=== PATIENT | female | born 1980 | race Hispanic/Latino ===

== ENCOUNTER 2019-02-22 22:09 | Inpatient (IN) ==
[2019-02-22] MEDS ORDERED: REGLAN PO PRN (22:34)
[2019-02-22] MEDS ORDERED: TYLENOL PO PRN (22:34)
[2019-02-22] MEDS ORDERED: KEFZOL 1 GM/D5W 1 GM/50 ML IVPB IV PRN (22:34)
[2019-02-22] MEDS ORDERED: PEPCID PO PRN ×2 (22:34)
[2019-02-22] MEDS ORDERED: STADOL IV PRN (22:34)
[2019-02-22] MEDS ORDERED: PEPCID IV PRN (22:34)
[2019-02-22] MEDS ORDERED: ZOFRAN IV PRN (22:34)
[2019-02-22] MEDS ORDERED: LR 1,000 ML IV SCH (22:45)
[2019-02-22] MEDS ORDERED: SODIUM CHLORIDE 0.9% INJ SCH (22:45)
[2019-02-22 22:48] LABS: URINE SOURCE VOIDED
[2019-02-22 22:51] LABS: BASO# 0.01 X1000 (0.0-0.2); BASO% 0.1 % (0.0-0.8); EOS# 0.22 X1000 (0.0-0.7); EOS% 2.2 % (0.0-10.0); HEMATOCRIT 31.4 % (37.0-47.0); HEMOGLOBIN 10.6 g/dL (12.0-16.0); IMM GRAN# 0.05 X1000 (0.0-0.04); IMM GRAN% 0.5 % (0.0-0.5); LYMPH# 2.63 X1000 (1.2-3.4); LYMPH% 26.8 % (20.5-51.1); MCH 31.3 PG (27-31); MCHC 33.8 g/dL (33-37); MCV 92.6 FL (81-99); MONO% 10.2 % (1.7-9.3); MPV 10.4 FL (7.4-10.4); NEUT# 5.91 X1000 (1.4-6.5); NEUT% 60.2 % (42.2-75.2); PLT 255 X1000 (130-400); RBC 3.39 XMIL (4.2-5.4); RDW 13.4 % (11.5-14.5); WBC 9.82 X1000 (4.8-10.8)
[2019-02-22 23:10] LABS: BILIRUBIN URINE NEGATIVE (NEGATIVE); BLOOD URINE NEGATIVE (NEGATIVE); CLARITY CLEAR (CLEAR); COLOR YELLOW; GLUCOSE URINE NEGATIVE (NEGATIVE); KETONE URINE NEGATIVE (NEGATIVE); LEUKOCYTES URINE TRACE (NEGATIVE); NITRITE URINE NEGATIVE (NEGATIVE); PH URINE 6.5; PROTEIN URINE NEGATIVE (NEGATIVE); UROBILINOGEN URINE NORMAL
[2019-02-22 23:13] LABS: UR AMPHETAMINES QUAL NONE DETECTED (NONE DETECT); UR BARBITUATES QUAL NONE DETECTED (NONE DETECT); UR BENZODIAZEPIN QUAL NONE DETECTED (NONE DETECT); UR CANNABINOIDS QUAL NONE DETECTED (NONE DETECT); UR COCAINE QUAL NONE DETECTED (NONE DETECT); UR METHADONE QUAL NONE DETECTED (NONE DETECT); UR METHAMPHETAMINE QUAL NONE DETECTED (NONE DETECT); UR OPIATES QUAL NONE DETECTED (NONE DETECT); UR OXYCODONE QUAL NONE DETECTED (NONE DETECT); UR PCP QUAL NONE DETECTED (NONE DETECT); UR PROPOXYPHENE QUAL NONE DETECTED (NONE DETECT); UR TCA QUAL NONE DETECTED (NONE DETECT)
[2019-02-22 23:30] LABS: POTASSIUM 3.9 mmol/L (3.5-5.1); SODIUM 137 mmol/L (136-145)
[2019-02-22 23:31] LABS: AGAP 12; ALBUMIN 3.7 g/dL (3.5-5.0); ALKALINE PHOSPHATASE 66 U/L (32-104); BUN 8 mg/dL (8-22); CALCIUM 8.9 mg/dL (8.8-10.2); CHLORIDE 105 mmol/L (98-107); COSMO 272; CREATININE 0.5 mg/dL (0.5-0.9); ESTIMATED GFR > 60; GLUCOSE 103 mg/dL (70-104); GOT 15 U/L (10-30); GPT 14 U/L (10-36); TCO2 21 mmol/L (25-35); TOTAL BILIRUBIN < 0.15 mg/dL (0.20-1.00); TOTAL PROTEIN 6.4 g/dL (6.3-8.3)
[2019-02-22] MEDS ORDERED: CYTOTEC VAG ONE (23:44)
[2019-02-22] MEDS ORDERED: SODIUM CHLORIDE 0.9% INJ ONE (23:44)
[2019-02-22] MEDS ORDERED: MORPHINE IV ONE (23:44)
[2019-02-22] MEDS ORDERED: PHENERGAN IV ONE (23:44)
[2019-02-23 00:04] LABS: URINE SOURCE CLEAN CATCH
[2019-02-23 00:05] LABS: CLARITY CLEAR (CLEAR); COLOR YELLOW; URINE BACTERIA 3+ /HFP; URINE EPITHELIAL CELLS <10 /HPF (<10); URINE RBC <10 /HPF (<10); URINE WBC <10 /HPF (<10)
[2019-02-23 00:06] LABS: BILIRUBIN URINE NEGATIVE (NEGATIVE); BLOOD URINE NEGATIVE (NEGATIVE); GLUCOSE URINE NEGATIVE (NEGATIVE); KETONE URINE NEGATIVE (NEGATIVE); LEUKOCYTES URINE TRACE (NEGATIVE); NITRITE URINE NEGATIVE (NEGATIVE); PH URINE 6.5; PROTEIN URINE NEGATIVE (NEGATIVE); UROBILINOGEN URINE NORMAL
[2019-02-23 00:59] LABS: INR 0.89; PROTIME 12.5 Seconds (11.0-16.0)
[2019-02-23 01:00] LABS: PTT 27.6 Seconds (22.3-41.8)
[2019-02-23] MEDS: PITOCIN 30 UNITS/NS 30 UNIT/500 ML IV.SOLN IV SCH ×2 (03:07→03:44)
[2019-02-23] MEDS ORDERED: MORPHINE IV ONE (03:15)
[2019-02-23] MEDS ORDERED: SODIUM CHLORIDE 0.9% INJ ONE (03:15)
[2019-02-23] MEDS ORDERED: PHENERGAN IV ONE (03:15)
--- NOTE | 2019-02-23 03:26 | OB/GYN PROGRESS NOTE ---
Progress Note OB - . OB Progress Note: Vital Signs - 24 hr 02/22/19 23:12 Temperature 97.4 F L Pulse Rate 78 Respiratory Rate 20 Blood Pressure 124/59 O2 Sat by Pulse Oximetry 100 Laboratory Results - last 24 hr 02/22/19 02/22/19 02/22/19 00:18 22:25 22:25 WBC RBC Hgb Hct MCV MCH MCHC RDW Std Deviation Plt Count MPV Immature Gran % (Auto) Neut % (Auto) Lymph % (Auto) [place] % (Auto) Eos % (Auto) Baso % (Auto) Immature Gran # (Auto) Neut # (Auto) Lymph # (Auto) [place] # (Auto) Eos # (Auto) Baso # (Auto) PT 12.5 INR 0.89 PTT (Actin FS) 27.6 Fibrinogen 468.0 Sodium Potassium Chloride Carbon Dioxide Anion Gap BUN Creatinine Estimated GFR/1.73 m2 BUN/Creatinine Ratio Glucose Calculated Osmolality Calcium Total Bilirubin AST ALT Alkaline Phosphatase Total Protein Albumin Globulin Albumin/Globulin Ratio Urine Source VOIDED Urine Color YELLOW Urine Clarity CLEAR Urine pH 6.5 Ur Specific [place] 1.010 Urine Protein NEGATIVE Urine Ketones NEGATIVE Urine Blood NEGATIVE Urine Nitrite NEGATIVE Urine Bilirubin NEGATIVE Urine Urobilinogen NORMAL Urine Microscopic RBC Urine WBC TRACE A Urine Microscopic WBC Ur Epithelial Cells Urine Bacteria Urine Glucose NEGATIVE Urine Opiates Screen NONE DETECTED Ur Oxycodone Screen NONE DETECTED Urine Methadone Screen NONE DETECTED U Propoxyphene Qual NONE DETECTED Ur Barbituates Screen NONE DETECTED Ur Tricyclics Screen NONE DETECTED Ur Phencyclidine Scrn NONE DETECTED Ur Amphetamines Screen NONE DETECTED U Methamphetamines Scrn NONE DETECTED U Benzodiazepines Scrn NONE DETECTED Urine Cocaine Screen NONE DETECTED U Cannabinoids Screen NONE DETECTED RPR Blood Type Antibody Screen 02/22/19 02/22/19 02/22/19 22:25 22:35 22:35 WBC 9.82 RBC 3.39 L Hgb 10.6 L Hct 31.4 L MCV 92.6 MCH 31.3 H MCHC 33.8 RDW Std Deviation 13.4 Plt Count 255 MPV 10.4 Immature Gran % (Auto) 0.5 Neut % (Auto) 60.2 Lymph % (Auto) 26.8 [place] % (Auto) 10.2 H Eos % (Auto) 2.2 Baso % (Auto) 0.1 Immature Gran # (Auto) 0.05 H Neut # (Auto) 5.91 Lymph # (Auto) 2.63 [place] # (Auto) 1.00 H Eos # (Auto) 0.22 Baso # (Auto) 0.01 PT INR PTT (Actin FS) Fibrinogen Sodium Potassium Chloride Carbon Dioxide Anion Gap BUN Creatinine Estimated GFR/1.73 m2 BUN/Creatinine Ratio Glucose Calculated Osmolality Calcium Total Bilirubin AST ALT Alkaline Phosphatase Total Protein Albumin Globulin Albumin/Globulin Ratio Urine Source CLEAN CATCH Urine Color YELLOW Urine Clarity CLEAR Urine pH 6.5 Ur Specific [place] 1.000 Urine Protein NEGATIVE Urine Ketones NEGATIVE Urine Blood NEGATIVE Urine Nitrite NEGATIVE Urine Bilirubin NEGATIVE Urine Urobilinogen NORMAL Urine Microscopic RBC <10 Urine WBC TRACE A Urine Microscopic WBC <10 Ur Epithelial Cells <10 Urine Bacteria 3+ Urine Glucose NEGATIVE Urine Opiates Screen Ur Oxycodone Screen Urine Methadone Screen U Propoxyphene Qual Ur Barbituates Screen Ur Tricyclics Screen Ur Phencyclidine Scrn Ur Amphetamines Screen U Methamphetamines Scrn U Benzodiazepines Scrn Urine Cocaine Screen U Cannabinoids Screen RPR NON-REACTIVE Blood Type Antibody Screen 02/22/19 02/22/19 22:35 22:35 WBC RBC Hgb Hct MCV MCH MCHC RDW Std Deviation Plt Count MPV Immature Gran % (Auto) Neut % (Auto) Lymph % (Auto) [place] % (Auto) Eos % (Auto) Baso % (Auto) Immature Gran # (Auto) Neut # (Auto) Lymph # (Auto) [place] # (Auto) Eos # (Auto) Baso # (Auto) PT INR PTT (Actin FS) Fibrinogen Sodium 137 Potassium 3.9 Chloride 105 Carbon Dioxide 21 L Anion Gap 12 BUN 8 Creatinine 0.5 Estimated GFR/1.73 m2 > 60 BUN/Creatinine Ratio 16 Glucose 103 Calculated Osmolality 272 Calcium 8.9 Total Bilirubin < 0.15 L AST 15 ALT 14 Alkaline Phosphatase 66 Total Protein 6.4 Albumin 3.7 Globulin 3.0 Albumin/Globulin Ratio 1.0 Urine Source Urine Color Urine Clarity Urine pH Ur Specific [place] Urine Protein Urine Ketones Urine Blood Urine Nitrite Urine Bilirubin Urine Urobilinogen Urine Microscopic RBC Urine WBC Urine Microscopic WBC Ur Epithelial Cells Urine Bacteria Urine Glucose Urine Opiates Screen Ur Oxycodone Screen Urine Methadone Screen U Propoxyphene Qual Ur Barbituates Screen Ur Tricyclics Screen Ur Phencyclidine Scrn Ur Amphetamines Screen U Methamphetamines Scrn U Benzodiazepines Scrn Urine Cocaine Screen U Cannabinoids Screen RPR Blood Type A POSITIVE Antibody Screen NEGATIVE Delivery Note Called to Patient's Room at approximately 0305 after delivery of . She had received 400mcg of vaginal cytotec at 1230. Non-viable Male delivered over an intact perineum. Apgars 0/0. Cord clamped and cut. Infant handed to mother. Placenta delivered intact with maternal pushing and gentle traction on cord. 3 vessel cord noted. Placenta sent to pathology. No lacerations noted. Bedside US revealed no retained placenta, ES 9mm, blood clot in lower uterine segment. EBL 50cc. Will continue strict pad counts and monitor bleeding. Will check CBC at 0600. Miguelina Romeo DO
[2019-02-23] MEDS ORDERED: MOTRIN PO PRN (07:17)
[2019-02-23] MEDS ORDERED: ATARAX PO PRN (07:17)
[2019-02-23] MEDS ORDERED: PITOCIN IM PRN (07:17)
[2019-02-23] MEDS ORDERED: M-M-R II VACCINE SUBQ ONE (07:17)
[2019-02-23] MEDS ORDERED: BENADRYL IV PRN (07:17)
[2019-02-23] MEDS ORDERED: BENADRYL PO PRN (07:17)
[2019-02-23] MEDS ORDERED: MINERAL OIL PO PRN (07:17)
[2019-02-23] MEDS ORDERED: HYDROXYZINE IM PRN (07:17)
[2019-02-23] MEDS ORDERED: CYTOTEC PO PRN (07:17)
[2019-02-23] MEDS ORDERED: XYLOCAINE-MPF 1% INJ PRN (07:17)
[2019-02-23] MEDS ORDERED: BOOSTRIX VACCINE IM ONE (07:17)
[2019-02-23] MEDS ORDERED: PERI MEDS (DERMOPLAST/NUPERCAINAL/TUCKS) MISC PRN (07:17)
[2019-02-23] MEDS ORDERED: AMBIEN PO PRN (07:17)
--- NOTE | 2019-02-23 07:19 | HISTORY AND PHYSICAL ---
PRIMARY PHYSICIAN: Dr. Patel. CHIEF COMPLAINT: Abdominal pain. HISTORY OF PRESENT ILLNESS: The patient is a 38-year-old G3, P1-1-0-2 at 22 weeks and 1 day by first trimester ultrasound who presented to the emergency room with complaint of abdominal pain that started approximately 1 hour ago. She describes the pain as intermittent and sharp. She denies any abnormal vaginal discharge or vaginal bleeding. She endorses movement. Upon cervical exam by nurse, the patient was noted to be approximately 5 cm dilated with palpable parts in the vagina and a bulging bag. Shortly after exam, the patient had a spontaneous rupture of membranes. heart tones were documented prior to ROM at 155. After ROM, the cervical exam was 3cm with lower extremity and umbilical cord prolapsing into the vagina. At this time the cord was not pulsating. Initially, the track watchman came and discussed attempting resuscitation. Extensively discussed inability to resuscitate infants at this gestational age and risks of lung hypoplasia. Patient voiced understanding and all questions were answered. Estimated due date June 27, 2019 by first trimester ultrasound. PAST MEDICAL HISTORY: Denies. PAST SURGICAL HISTORY: History of section x2. SOCIAL HISTORY: Denies tobacco, alcohol or drug use. FAMILY HISTORY: Denies. MEDICATIONS: vitamin. ALLERGIES: No known drug allergies. OBSTETRICAL HISTORY: G1- section at approximately 7 months due to labor and rupture of membranes, male 5 pounds (1999) G2, section at 38 weeks, repeat section secondary to labor, male, 6 pounds (2008) G3- current, denies complications. Has been followed by Dr. Patel. GYNECOLOGICAL HISTORY: She denied any history of sexual transmitted infections. Last Pap smear in 2018 was normal. She denies any history of abnormal Pap smears. VITAL SIGNS: Temp: 97.4 Heart rate:77 Blood pressure:124/59 Oxygen saturation 100%, RA FHT: 155 upon arrival [place]: Q 1 minute LABORATORY DATA: White blood cell count 9.8, hemoglobin 10.6, hematocrit 31.4, platelets 255,000. Creatinine 0.5. AST 15, ALT 14. Blood type A positive with a negative antibody screen. RPR negative. Urinalysis: Trace white blood cells. Urinary drug screen negative. PHYSICAL EXAMINATION: GENERAL: Alert, mild distress secondary to pain. HEENT: Normocephalic, atraumatic. LUNGS: Clear to auscultation bilaterally. HEART: Regular rate and rhythm. No murmurs, rubs or gallops. ABDOMEN: Soft, nondistended. Fundal tenderness to palpation. Vertical midline scar on abdomen. PELVIC: Cervix approximately 3 cm dilated and with parts in vagina along with umbilical cord. Cord not pulsating. Minimal vaginal bleeding. EXTREMITIES: no edema, negative derek's sign ASSESSMENT AND PLAN: 38-year-old G3, P1-1-0-2 at 22 weeks and 1 day by T1 ultrasound with previable rupture of membranes and labor, AMA, Hx c/s x 2 1. Hemodynamically stable, afebrile. 2. Epidural anesthesia or IV pain medications p.r.n. pain. 3. Records Management Director available to assess infant after delivery. Discussed with the patient that infants at 22 weeks are typically not viable and are unable to be resuscitated. 4. Will obtain Two large bore IVs and blood type and screen. 5. We will proceed with Cytotec 400 mcg vaginally q.6 hours to augment labor and facilitate delivery. Strict pad counts. 6. laborer/grade check used to discuss plan of care with the patient. Consent signed for blood transfusion and possible suction and dilation and curettage if placenta unable to be delivered. R/B/A She voiced understanding. Consent signed. 7. We will send placenta to pathology after delivery. 8. Floral Designer Salesperson [facility]
[2019-02-23] MEDS ORDERED: PITOCIN 30 UNITS/NS 30 UNIT/500 ML IV.SOLN IV SCH (07:30)
[2019-02-23] MEDS ORDERED: PITOCIN 20 UNITS/NS 20 UNITS/1,000 ML IV.SOLN IV SCH (07:30)
--- NOTE | 2019-02-23 07:31 | OB/GYN PROGRESS NOTE ---
Progress Note OB - . Patient Problems: Current Active Problems Problem Status Onset Advanced maternal age (AMA) in Acute labor Acute demise, greater than 22 weeks, delivered, current hospitalization Acute History of section Acute OB Progress Note: Vital Signs - 24 hr 02/22/19 23:12 02/23/19 04:00 Temperature 97.4 F L 97.6 F Pulse Rate 78 96 H Respiratory Rate 20 18 Blood Pressure 124/59 102/55 O2 Sat by Pulse Oximetry 100 98 Laboratory Results - last 24 hr 02/22/19 02/22/19 02/22/19 00:18 22:25 22:25 WBC RBC Hgb Hct MCV MCH MCHC RDW Std Deviation Plt Count MPV Immature Gran % (Auto) Neut % (Auto) Lymph % (Auto) [place] % (Auto) Eos % (Auto) Baso % (Auto) Immature Gran # (Auto) Neut # (Auto) Lymph # (Auto) [place] # (Auto) Eos # (Auto) Baso # (Auto) PT 12.5 INR 0.89 PTT (Actin FS) 27.6 Fibrinogen 468.0 Sodium Potassium Chloride Carbon Dioxide Anion Gap BUN Creatinine Estimated GFR/1.73 m2 BUN/Creatinine Ratio Glucose Calculated Osmolality Calcium Total Bilirubin AST ALT Alkaline Phosphatase Total Protein Albumin Globulin Albumin/Globulin Ratio Urine Source VOIDED Urine Color YELLOW Urine Clarity CLEAR Urine pH 6.5 Ur Specific [place] 1.010 Urine Protein NEGATIVE Urine Ketones NEGATIVE Urine Blood NEGATIVE Urine Nitrite NEGATIVE Urine Bilirubin NEGATIVE Urine Urobilinogen NORMAL Urine Microscopic RBC Urine WBC TRACE A Urine Microscopic WBC Ur Epithelial Cells Urine Bacteria Urine Glucose NEGATIVE Urine Opiates Screen NONE DETECTED Ur Oxycodone Screen NONE DETECTED Urine Methadone Screen NONE DETECTED U Propoxyphene Qual NONE DETECTED Ur Barbituates Screen NONE DETECTED Ur Tricyclics Screen NONE DETECTED Ur Phencyclidine Scrn NONE DETECTED Ur Amphetamines Screen NONE DETECTED U Methamphetamines Scrn NONE DETECTED U Benzodiazepines Scrn NONE DETECTED Urine Cocaine Screen NONE DETECTED U Cannabinoids Screen NONE DETECTED RPR Blood Type Antibody Screen 02/22/19 02/22/19 02/22/19 22:25 22:35 22:35 WBC 9.82 RBC 3.39 L Hgb 10.6 L Hct 31.4 L MCV 92.6 MCH 31.3 H MCHC 33.8 RDW Std Deviation 13.4 Plt Count 255 MPV 10.4 Immature Gran % (Auto) 0.5 Neut % (Auto) 60.2 Lymph % (Auto) 26.8 [place] % (Auto) 10.2 H Eos % (Auto) 2.2 Baso % (Auto) 0.1 Immature Gran # (Auto) 0.05 H Neut # (Auto) 5.91 Lymph # (Auto) 2.63 [place] # (Auto) 1.00 H Eos # (Auto) 0.22 Baso # (Auto) 0.01 PT INR PTT (Actin FS) Fibrinogen Sodium Potassium Chloride Carbon Dioxide Anion Gap BUN Creatinine Estimated GFR/1.73 m2 BUN/Creatinine Ratio Glucose Calculated Osmolality Calcium Total Bilirubin AST ALT Alkaline Phosphatase Total Protein Albumin Globulin Albumin/Globulin Ratio Urine Source CLEAN CATCH Urine Color YELLOW Urine Clarity CLEAR Urine pH 6.5 Ur Specific [place] 1.000 Urine Protein NEGATIVE Urine Ketones NEGATIVE Urine Blood NEGATIVE Urine Nitrite NEGATIVE Urine Bilirubin NEGATIVE Urine Urobilinogen NORMAL Urine Microscopic RBC <10 Urine WBC TRACE A Urine Microscopic WBC <10 Ur Epithelial Cells <10 Urine Bacteria 3+ Urine Glucose NEGATIVE Urine Opiates Screen Ur Oxycodone Screen Urine Methadone Screen U Propoxyphene Qual Ur Barbituates Screen Ur Tricyclics Screen Ur Phencyclidine Scrn Ur Amphetamines Screen U Methamphetamines Scrn U Benzodiazepines Scrn Urine Cocaine Screen U Cannabinoids Screen RPR NON-REACTIVE Blood Type Antibody Screen 02/22/19 02/22/19 22:35 22:35 WBC RBC Hgb Hct MCV MCH MCHC RDW Std Deviation Plt Count MPV Immature Gran % (Auto) Neut % (Auto) Lymph % (Auto) [place] % (Auto) Eos % (Auto) Baso % (Auto) Immature Gran # (Auto) Neut # (Auto) Lymph # (Auto) [place] # (Auto) Eos # (Auto) Baso # (Auto) PT INR PTT (Actin FS) Fibrinogen Sodium 137 Potassium 3.9 Chloride 105 Carbon Dioxide 21 L Anion Gap 12 BUN 8 Creatinine 0.5 Estimated GFR/1.73 m2 > 60 BUN/Creatinine Ratio 16 Glucose 103 Calculated Osmolality 272 Calcium 8.9 Total Bilirubin < 0.15 L AST 15 ALT 14 Alkaline Phosphatase 66 Total Protein 6.4 Albumin 3.7 Globulin 3.0 Albumin/Globulin Ratio 1.0 Urine Source Urine Color Urine Clarity Urine pH Ur Specific [place] Urine Protein Urine Ketones Urine Blood Urine Nitrite Urine Bilirubin Urine Urobilinogen Urine Microscopic RBC Urine WBC Urine Microscopic WBC Ur Epithelial Cells Urine Bacteria Urine Glucose Urine Opiates Screen Ur Oxycodone Screen Urine Methadone Screen U Propoxyphene Qual Ur Barbituates Screen Ur Tricyclics Screen Ur Phencyclidine Scrn Ur Amphetamines Screen U Methamphetamines Scrn U Benzodiazepines Scrn Urine Cocaine Screen U Cannabinoids Screen RPR Blood Type A POSITIVE Antibody Screen NEGATIVE Pt doing well. minimal lochia pain controlled. O Vitals as above Gen: AAOx3 NAD CV: RRR no g/m/r Lungs: CTAB no w/r/r Abd: +BS soft NT/ND Ext: no c/c/e Labs: CBC pending A: PPD#0 IUFD PTD Samoan speaking only P: D/C home later today
[2019-02-23 07:54] LABS: BASO# 0.02 X1000 (0.0-0.2); BASO% 0.1 % (0.0-0.8); EOS# 0.07 X1000 (0.0-0.7); EOS% 0.4 % (0.0-10.0); HEMATOCRIT 29.9 % (37.0-47.0); HEMOGLOBIN 10.1 g/dL (12.0-16.0); IMM GRAN# 0.05 X1000 (0.0-0.04); IMM GRAN% 0.3 % (0.0-0.5); LYMPH% 12.3 % (20.5-51.1); MCH 30.5 PG (27-31); MCHC 33.8 g/dL (33-37); MCV 90.3 FL (81-99); MONO# 1.36 X1000 (0.11-0.59); MONO% 8.4 % (1.7-9.3); MPV 10.4 FL (7.4-10.4); NEUT# 12.73 X1000 (1.4-6.5); NEUT% 78.5 % (42.2-75.2); PLT 263 X1000 (130-400); RBC 3.31 XMIL (4.2-5.4); RDW 13.3 % (11.5-14.5); WBC 16.23 X1000 (4.8-10.8)
[2019-02-23 17:51] VITALS: BP 101/58
[2019-02-23] MEDS ORDERED: PERICOLACE PO SCH (21:00)
== END 2019-02-23 11:50 | disposition home or self-care (01) | DRG 805 ==
LOC: P.OPLD 22:09 → P.LD 22:13
PROVIDERS: ADMIT Student in an Organized Health Care Education/Training Program; ATTEND Student in an Organized Health Care Education/Training Program